=== PATIENT | male | born 1960 | race Caucasian/White ===

== ENCOUNTER → 2019-12-21 | Day surgery (SDC) | payer BC, OTHER ==
[~2019-12-21] MED LIST: COQ1050 MG PO; DICLOFENAC SOD100 G1 PO; DOXAZOSIN MESYLA2 MG PO; GLUCOSAMINE1000 MG PO; HYOSCYAMINE 0.125 MG TAB ONE; METOCLOPRAMIDE HCL 10 MG/2ML VIAL ONE; MULTI-VITAMIN1 EACH PO; PROPOFOL IV EMULSION 10 MG/ML 20 ML VIAL ONE
[2019-12-21 14:05] VITALS: BP 112/75
--- NOTE | 2019-12-21 15:09 | Operative Report ---
DATE OF PROCEDURE: 12/21/2019 SURGEON: George Drummond MD PROCEDURES: EGD with biopsies and esophageal dilatation, and a colonoscopy with polypectomy and biopsies. INDICATIONS FOR EGD: Dysphagia. INDICATIONS FOR COLONOSCOPY: Colorectal cancer screening. MEDICATIONS: The patient was done under MAC, please see anesthesiologist's note. PROCEDURE IN DETAIL: With the patient in left lateral decubitus position, a flexible fiberoptic Olympus gastroscope was introduced into the esophagus under direct visualization without any difficulty. There was some patchy erythema noted in distal esophagus. There were some velvety red tongues of mucosa extending proximally from the GE junction and biopsies were obtained to rule out sprue. There was also a mild stricture noted in the distal esophagus, that was dilated to size 52-[place]. The scope was then advanced with ease into the stomach, traversing a moderate-sized hiatal hernia. Mucosa overlying the antrum and the body revealed some patchy erythema and [id number] edema and biopsies were obtained, and sent to stain for H. pylori. The pylorus was of normal contour and shape, it was intubated with ease and the scope was advanced all the way to the second portion of the duodenum. Biopsies were obtained from the proximal second portion and duodenal bulb to rule out sprue. The scope was then withdrawn back into the stomach and retroflexed, mucosa overlying the fundus and cardia appeared to be within normal limits. The scope was then straightened out, it was subsequently withdrawn. The patient tolerated the procedure well. IMPRESSION: 1. Distal esophagitis. 2. Rule out Ford esophagus. 3. Esophageal stricture, distal esophagus, dilated to size 52-[place]. 4. Moderate size hiatal hernia. 5. Gastritis, biopsied, biopsies sent to stain for H. pylori. 6. Rule out sprue. PLAN: 1. Follow up histology. 2. Initiate Protonix 40 mg one p.o. q.a.m. a.c. DESCRIPTION OF PROCEDURE: The patient was then turned around and after adequate lubrication of the anal canal, a flexible fiberoptic Olympus colonoscope was inserted into the rectum with ease and advanced all the way to the cecum. It was then withdrawn slowly, mucosa overlying the cecum and ascending colon appeared to be within normal limits. A minute polyp was removed per the cold biopsy forceps from the distal transverse colon. The descending sigmoid appeared to be within normal limits. A minute submucosal nodule was noted in the distal rectum, that was biopsied. Moderate-sized internal hemorrhoids were noted on retroflexion. The scope was then straightened out, it was subsequently withdrawn. The patient tolerated the procedure well. IMPRESSION: 1. Transverse colon polyp, removed per cold biopsy forceps. 2. Submucosal nodule distal rectum, biopsied. 3. Internal hemorrhoids, none actively bleeding. PLAN: 1. Followup histology. 2. Initiate high-fiber, low-fat diet. 3. Initiate high-fiber supplement. 4. The patient might benefit from a followup colonoscopy in 3 years. George Drummond MD [facility] [place]/MOD[facility] /[id number] cc: Diego Chowdhury MD
== END | disposition home or self-care (01) ==
LOC: OR 10:22
PROVIDERS: ATTEND Internal Medicine Gastroenterology
DX: K22.2 Esophageal obstruction (principal); D12.3 Benign neoplasm of transverse colon; K29.70 Gastritis, unspecified, without bleeding; K21.0 Gastro-esophageal reflux disease with esophagitis; K44.9 Diaphragmatic hernia without obstruction or gangrene; K62.89 Other specified diseases of anus and rectum; K64.8 Other hemorrhoids; I10 Essential (primary) hypertension; Z01.810 Encounter for preprocedural cardiovascular examination; Z01.812 Encounter for preprocedural laboratory examination; Z11.59 Encounter for screening for other viral diseases
CPT/HCPCS: 43239; 43450; 45380; 93005; J2704; J2765; U0002

== ENCOUNTER 2020-02-08 09:01 | Inpatient (IN) | payer BC, OTHER ==
[~2020-02-08] VITALS: Ht 190.5 cm; Wt 129.3 kg
[~2020-02-08 09:01] MED LIST changes: -HYOSCYAMINE 0.125 MG TAB ONE; -METOCLOPRAMIDE HCL 10 MG/2ML VIAL ONE; -PROPOFOL IV EMULSION 10 MG/ML 20 ML VIAL ONE
[2020-02-08] MEDS ORDERED: AZITHROMYCIN 500MG/NS 250 ML 250 ML IV STA (09:04)
[2020-02-08] MEDS ORDERED: CEFTRIAXONE SOD 1 GM/NS 50 ML 50 ML IV ONE (09:15)
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
--- NOTE | 2020-02-08 09:58 | Emergency Department Note ---
History of Present Illnes History of Present Illness Chief Complaint: COVID PUI History of Present Illness This is a 59 year old mal arrives to the ED with complaints of cough fever shortness of breath. Pt covid + admits to worsening symptoms with ambulation. Chief Complaint Comment TESTED POSITIVE COVID 01/29 CAME INTO E.R. TODAY, WITH C/O OF SWEATING, COUGH, "FEEL LIKE I AM SUFFOCATING" SAT 97%. COMPLETING SENTENCES WITHOUT DIFFICULTY. Historian: Patient Arrival Mode: Car Additional Treatment RATE REVIEWER: NONE Radiation: Reports non-radiation Severity: mild Timing of current episode: constant Progression: worsening Relieving factors: none Exacerbating factors: none Past Medical/Family History Physician Review I have reviewed the patient's past medical and family history. Any updates have been documented here. Past Medical History Recent Fever: No Clinical Suspicion of Infectio: No New/Unexplained Change in Ment: No Past Medical History: None Past Surgical History: None Social History Smoking Cessation: Never Smoker Review of Systems Review of Systems Constitutional: Reports no symptoms, Reports chills, Reports fever EENTM: Reports no symptoms Cardiovascular: Reports no symptoms Respiratory: Reports as per HPI, Reports cough Gastrointestinal: Reports no symptoms Genitourinary: Reports no symptoms Musculoskeletal: Reports no symptoms Integumentary: Reports no symptoms Neurological: Reports no symptoms Psychological: Reports no symptoms Endocrine: Reports no symptoms Hematological/Lymphatic: Reports no symptoms Physical Exam Related Data Allergies: Coded Allergies: No Known Allergies (Unverified , 12/14/19) Triage Vital Signs Vital Signs Date Time Temp Pulse Resp B/P (MAP) Pulse Ox O2 Delivery O2 Flow Rate FiO2 02/08/20 09:21 98.8 98 18 175/104 97 Room Air Vital signs reviewed: Yes Physical Exam CONSTITUTIONAL Constitutional: Present well-developed, Present well-nourished HENT HENT: Present normocephalic, Present atraumatic, Present oropharynx clear/moist, Present nose normal HENT L/R: Present left ext ear normal, Present right ext ear normal EYES Eyes: Reports PERRL, Reports conjunctivae normal NECK Neck: Present ROM normal PULMONARY Pulmonary: Present effort normal, Present breath sounds normal CARDIOVASCULAR Cardiovascular: Present regular rhythm, Present heart sounds normal, Present capillary refill normal, Present normal rate GASTROINTESTINAL Abdominal: Present soft, Present nontender, Present bowel sounds normal GENITOURINARY Genitourinary: Present exam deferred SKIN Skin: Present warm, Present dry MUSCULOSKELETAL Musculoskeletal: Present ROM normal NEUROLOGICAL Neurological: Present alert, Present oriented x 3, Present no gross motor or sensory deficits PSYCHOLOGICAL Psychological: Present mood/affect normal, Present judgement normal Results Laboratory Lab results reviewed: Yes Laboratory comments Laboratory Tests Test 02/08/20 09:47 White Blood Count 5.80 x10e3/uL (4.8-10.8) Red Blood Count 5.23 x10e6/uL (4.3-5.7) Hemoglobin 14.6 g/dL (14.0-18.0) Hematocrit 44.1 % (38.2-49.6) Mean Corpuscular Volume 84.3 fL (81-99) Mean Corpuscular Hemoglobin 27.9 pg (28-32) Mean Corpuscular Hemoglobin Concent 33.1 g/dL (31-35) Red Cell Distribution Width 13.0 % (11.7-14.4) Platelet Count 291 x10e3/uL (140-360) Neutrophils (%) (Auto) 75.5 % (38.7-80.0) Lymphocytes (%) (Auto) 11.6 % (18.0-39.1) Monocytes (%) (Auto) 11.9 % (4.4-11.3) Eosinophils (%) (Auto) 0.5 % (0.0-6.0) Basophils (%) (Auto) 0.2 % (0.0-1.0) Neutrophils # (Auto) 4.4 (2.1-6.9) Lymphocytes # (Auto) 0.7 (1.0-3.2) Monocytes # (Auto) 0.7 (0.2-0.8) Eosinophils # (Auto) 0.0 (0.0-0.4) Basophils # (Auto) 0.0 (0.0-0.1) Absolute Immature Granulocyte (auto 0.02 x10e3/uL (0-0.1) Sodium Level 141 mmol/L (136-145) Potassium Level 4.0 mmol/L (3.5-5.1) Chloride Level 103 mmol/L (98-107) Carbon Dioxide Level 21 mmol/L (22-29) Anion Gap 21.0 mmol/L (8-16) Blood Urea Nitrogen 14 mg/dL (7-26) Creatinine 1.13 mg/dL (0.72-1.25) Estimat Glomerular Filtration Rate > 60 ML/MIN (60-) BUN/Creatinine Ratio 12 (6-25) Glucose Level 111 mg/dL (74-118) Calcium Level 8.4 mg/dL (8.4-10.2) Total Bilirubin 0.9 mg/dL (0.2-1.2) Aspartate Amino Transf (AST/SGOT) 88 IU/L (5-34) Alanine Aminotransferase (ALT/SGPT) 88 IU/L (0-55) Alkaline Phosphatase 60 IU/L (40-150) Creatine Kinase 337 IU/L (30-200) Creatine Kinase MB 5.70 ng/mL (0-5.0) Troponin I 0.021 ng/mL (0-0.300) Total Protein 7.0 g/dL (6.5-8.1) Albumin 3.8 g/dL (3.5-5.0) Globulin 3.2 g/dL (2.3-3.5) Albumin/Globulin Ratio 1.2 (0.8-2.0) Imaging Imaging results reviewed: Yes Impressions IMPRESSION: Bilateral multifocal hazy opacities can be seen in the setting of atypical pneumonia. Critical Care Time Total Critical Care Time (min): 35 Critical care time exclusive o: separately billable procedures Assessment & Plan Medical Decision Making MDM 59-year-old male arrives the ED with complaints of cough, no difficulty positive. Patient states his symptoms are worsening. Patient noted to have Coban pneumonia on chest x-ray. Patient required hospital admission for observation and further monitoring. Assessment & Plan Final Impression: (1) Pneumonia due to COVID-19 virus Depart Disposition: HOME, SELF-CARE Last Vital Signs Date Time Temp Pulse Resp B/P (MAP) Pulse Ox O2 Delivery O2 Flow Rate FiO2 02/08/20 09:21 98.8 98 18 175/104 97 Room Air Home Meds Reported Medications Diclofenac Sodium (Diclofenac Sodium) 100 Gm Gel..gram., 1 TAB PO DAILY 12/14/19 Doxazosin Mesylate (DOXAZOSIN MESYLATE) 2 Mg Tablet, 1 MG PO DAILY, #30 TAB 12/14/19 Multivitamin (MULTI-VITAMIN DAILY) 1 Each Tablet, 1 TAB PO DAILY 12/14/19 Ubidecarenone (Coq10) 50 Mg Tab.chew, 1 TAB PO DAILY 12/14/19 Glucosamine Sulfate 2KCL (GLUCOSAMINE) 1,000 Mg Tablet, 2 TAB PO DAILY 12/14/19 Medications in the ED Ceftriaxone Sodium 50 ml @ 100 mls/hr ONCE ONCE IV ; Start 02/08/20 at 09:15; Stop 02/08/20 at 09:44 Azithromycin 250 ml @ 250 mls/hr NOW STAT IV ; Start 02/08/20 at 09:04; Stop 02/08/20 at 10:03 CANDICE SCALES DO Feb 08, 2020 09:58
[2020-02-08 09:59] LABS: BASOPHILS % 0.2 % (0.0-1.0); EOSINOPHILS % 0.5 % (0.0-6.0); HEMATOCRIT 44.1 % (38.2-49.6); HEMOGLOBIN 14.6 g/dL (14.0-18.0); LYMPHOCYTES # (AUTO) 0.7 (1.0-3.2); LYMPHOCYTES % 11.6 % (18.0-39.1); MEAN CORPUSCULAR HEMOGLOBIN 27.9 pg (28-32); MEAN CORPUSCULAR HGB CONC 33.1 g/dL (31-35); MEAN CORPUSCULAR VOLUME 84.3 fL (81-99); MONOCYTES # (AUTO) 0.7 (0.2-0.8); MONOCYTES % 11.9 % (4.4-11.3); NEUTROPHILS # (AUTO) 4.4 (2.1-6.9); NEUTROPHILS % 75.5 % (38.7-80.0); PLATELET COUNT 291 x10e3/uL (140-360); RED BLOOD COUNT 5.23 x10e6/uL (4.3-5.7)
[2020-02-08 10:25] LABS: ALANINE AMINOTRANSFERASE 88 IU/L (0-55); ALBUMIN 3.8 g/dL (3.5-5.0); ALBUMIN/GLOBULIN RATIO 1.2 (0.8-2.0); ALKALINE PHOSPHATASE 60 IU/L (40-150); BLOOD UREA NITROGEN 14 mg/dL (7-26); BUN/CREATININE RATIO 12 (6-25); CALCIUM 8.4 mg/dL (8.4-10.2); CARBON DIOXIDE 21 mmol/L (22-29); CHLORIDE 103 mmol/L (98-107); CREATINE KINASE 337 IU/L (30-200); CREATININE, SERUM 1.13 mg/dL (0.72-1.25); EST GLOMERULAR FILTRATION RATE > 60 ML/MIN (60-); GLUCOSE 111 mg/dL (74-118); SODIUM 141 mmol/L (136-145)
--- NOTE | 2020-02-08 10:31 | Diagnostic Imaging Report ---
EXAMINATION: CHEST SINGLE (PORTABLE) INDICATION: Shortness of breath COMPARISON: None FINDINGS: LINES/TUBES:None LUNGS:The lungs are well-inflated. Bilateral multifocal hazy opacities. PLEURA:No pleural effusion or pneumothorax. MEDIASTINUM:The cardiomediastinal silhouette appears normal in size and shape. BONES/SOFT TISSUES:No acute osseous injury. ABDOMEN:No free air under the diaphragm. IMPRESSION: Bilateral multifocal hazy opacities can be seen in the setting of atypical pneumonia. Signed by: Red Molina MD on 02/08/2020 10:27 AM
[2020-02-08] MEDS: DEXAMETHASONE SOD PHOS INJ 4 MG/ML VIAL IV SCH (14:43)
[2020-02-08] MEDS: SODIUM CHLORIDE 0.9% 1000ML 1,000 ML IV SCH (14:43)
--- NOTE | 2020-02-08 18:12 | History and Physical ---
CHIEF COMPLAINT: The patient is a 59-year-old gentleman, who came in with shortness of breath and cough and congestion. HISTORY OF PRESENTING ILLNESS: Mr. Ben Harper, who was tested about a week ago by me in the clinic and was positive for COVID-19, was sent home with symptomatic treatment. The patient did not have any symptoms of cough and congestion, was given some antibiotics and over the weekend and towards the beginning of the week, the patient woke up with congestion and a lot of fever and myalgia, and the patient was calling the office and was asked to come on to the hospital for possible admission secondary to COVID pneumonia. PAST MEDICAL HISTORY: History of hypertension, history of hyperlipidemia, and history of prediabetes. PAST SURGICAL HISTORY: Noncontributory. SOCIAL HISTORY: No EtOH. No IV drug abuse. No history of smoking. FAMILY HISTORY: Noncontributory. ALLERGIES: THE PATIENT NO KNOWN DRUG ALLERGIES. MEDICATIONS: He takes at home are diclofenac 100 mg, doxazosin 2 mg, glucosamine chondroitin, multivitamin, and CoQ10. REVIEW OF SYSTEMS: Negative for chest pain. Positive for some shortness of breath. No nausea, vomiting, or diarrhea. Positive for myalgia. Positive for fever, positive for congestion, and positive for cough. No diplopia. No blurry vision. PHYSICAL EXAMINATION: VITAL SIGNS: Temperature is 98.4, pulse of 89, respirations of 22, blood pressure is 155/96, on room air. HEENT: Normocephalic, atraumatic. Pupils are reactive to light and accommodation. CVS: S1 and S2 are normal. Regular rate and rhythm. LUNGS: Decreased air entry. Positive rhonchi bilaterally. EXTREMITIES: No clubbing. No cyanosis. Positive for 1+ edema. LABORATORY VALUES: White count is 5.80, hemoglobin 14.6, hematocrit 44.1. Chemistry shows sodium 141, potassium 4.0, BUN of 14, creatinine of 1.13, ALT and AST of 88 and 88. Creatine kinase was 337 and troponin 0.021. Serology; coronavirus is pending, but has been positive in the past. Chest x-ray shows bilateral multifocal hazy opacities, can be seen in the setting of atypical pneumonia. ASSESSMENT: Mr. Ben Harper with coronavirus disease 2019 pneumonia. PLAN: Is to start the patient on azithromycin, Rocephin, and albuterol treatments will be given. The patient also needs to be in isolation. Lovenox 40 mg twice a day for DVT prophylaxis and also start the patient on dexamethasone 6 mg once a day per COVID protocol. Continue to monitor the patient. IV fluids and hydration. Further recommendation per clinical course. A consult with Dr. Milton and Dr. Raines has been done. MD FRANK Hodge/KATELYNL /[id number]
--- NOTE | 2020-02-08 18:57 | Consultation ---
DATE OF CONSULTATION: Pulmonary Consultation The patient of Dr. Diego Chowdhury. HISTORY OF PRESENT ILLNESS: Melissaming 59-year-old gentleman admitted with sweats, nonproductive cough, sore throat, ill for approximately three weeks. History of BPH, episode of diarrhea, noted swelling of the legs. History of BPH, on doxazosin. Also takes diclofenac. ALLERGIES: NO KNOWN ALLERGIES. SURGICAL HISTORY: He has had neck surgery, TNA. SOCIAL HISTORY: Rarely drinks. Does not smoke. Works for a [employer]. Son and his family also affects with COVID-19. PHYSICAL EXAMINATION: VITAL SIGNS: Temperature 98.8, pulse 98, blood pressure 175/104, O2 saturation 97% on room air. HEAD: Normocephalic, atraumatic. EYES: Extraocular movements are intact. LUNGS: Few rales at the bases. HEART: Regular rhythm. ABDOMEN: Nontender. EXTREMITIES: Edematous. IMPRESSION: COVID-19 pneumonia. PLAN: Support, moderate dose of Decadron. Prophylactic anticoagulation. Consider venous Doppler of the lower extremities. Continue doxazosin. Careful observation. Empiric antibiotic therapy with azithromycin and Rocephin. Thank you for this kind referral. MD JUAN Peace/ADRIENNE /[id number]
[2020-02-08] MEDS ORDERED: ASPIRIN 325 MG TAB PO ONE (20:30)
[2020-02-08] MEDS ORDERED: ASPIRIN 325 MG TAB EC PO ONE (20:31)
--- NOTE | 2020-02-08 20:44 | NUR ---
EKG PERFORMED: SHOWN TO DR JOHNSON FOR REVIEW, CARDIOLOGY TEAM PAGED AND RULED OUT NON-EMERGENT EKG BY -CARDIOLOGY.
--- NOTE | 2020-02-08 20:46 | NUR ---
EXTENSIVE CONVERSATION BETWEEN DR RIZVI AND DR PERDUE
[2020-02-08] MEDS: ENOXAPARIN SOD INJ 40 MG/0.4 ML SYR SC SCH (21:04)
[2020-02-08] MEDS: CEFTRIAXONE SOD 1 GM/NS 50 ML 50 ML IV SCH (21:04)
--- NOTE | 2020-02-08 22:15 | NUR ---
ADMISSION STATUS CHANGED TO IMCU PER DR. Joe YANES; HS NOTIFIED
[2020-02-09] VITALS (7 sets, daily range): BP systolic 138–173; BP diastolic 88–119
--- NOTE | 2020-02-09 00:10 | NUR ---
CALLED DR PERDUE FOR PRN MED FOR PT BP CURRENTLY AT 173/119. LEFT MESSAGE AWAITING CALL BACK.
[2020-02-09] MEDS: SODIUM CHLORIDE 0.9% 1000ML 1,000 ML IV SCH ×3 (00:29→13:53)
[2020-02-09] MEDS: HYDRALAZINE HCL 20 MG/ML VIAL IV STA ×2 (00:29→01:02)
--- NOTE | 2020-02-09 01:02 | NUR ---
PATIENT REFUSED PRN HYDRALAZINE FOR HIGH BP STATING THAT IT WILL GO DOWN AND HE DOESN'T LIKE MEDS. ED PT THAT IF IT GOES UP AND STAYS UP THAT IS WHEN WE NEED TO ADMINISTER TO AVOID PROBLEMS. WILL CONT TO MONITOR.
[2020-02-09] MEDS ORDERED: HYDRALAZINE HCL 20 MG/ML VIAL IV PRN (04:00)
[2020-02-09 04:43] LABS: HEMATOCRIT 43.9 % (38.2-49.6); HEMOGLOBIN 14.3 g/dL (14.0-18.0); LYMPHOCYTES # (AUTO) 0.3 (1.0-3.2); MEAN CORPUSCULAR HEMOGLOBIN 28.3 pg (28-32); MEAN CORPUSCULAR HGB CONC 32.6 g/dL (31-35); MEAN CORPUSCULAR VOLUME 86.9 fL (81-99); MONOCYTES # (AUTO) 0.3 (0.2-0.8); MONOCYTES % 7.4 % (4.4-11.3); NEUTROPHILS # (AUTO) 3.9 (2.1-6.9); NEUTROPHILS % 84.9 % (38.7-80.0); PLATELET COUNT 319 x10e3/uL (140-360); RED BLOOD COUNT 5.05 x10e6/uL (4.3-5.7)
[2020-02-09 05:02] LABS: ALANINE AMINOTRANSFERASE 77 IU/L (0-55); ALBUMIN 3.5 g/dL (3.5-5.0); ALBUMIN/GLOBULIN RATIO 1.1 (0.8-2.0); ALKALINE PHOSPHATASE 59 IU/L (40-150); ANION GAP 17.9 mmol/L (8-16); BLOOD UREA NITROGEN 13 mg/dL (7-26); BUN/CREATININE RATIO 12 (6-25); CALCIUM 8.2 mg/dL (8.4-10.2); CARBON DIOXIDE 22 mmol/L (22-29); CHLORIDE 106 mmol/L (98-107); CREATININE, SERUM 1.05 mg/dL (0.72-1.25); EST GLOMERULAR FILTRATION RATE > 60 ML/MIN (60-); GLUCOSE 150 mg/dL (74-118); POTASSIUM 4.9 mmol/L (3.5-5.1); SODIUM 141 mmol/L (136-145)
[2020-02-09 05:25] LABS: CREATINE KINASE MB 7.3 ng/mL (0-5.0)
[2020-02-09] MEDS: CEFTRIAXONE SOD 1 GM/NS 50 ML 50 ML IV SCH ×2 (09:33→21:04)
[2020-02-09] MEDS: DEXAMETHASONE SOD PHOS INJ 4 MG/ML VIAL IV SCH (09:35)
[2020-02-09] MEDS: MULTIVITAMINS/MINERALS TAB PO SCH (09:35)
[2020-02-09] MEDS: ENOXAPARIN SOD INJ 40 MG/0.4 ML SYR SC SCH ×2 (09:36→21:04)
[2020-02-09] MEDS: DOXAZOSIN MESYLATE 2 MG TAB PO SCH (09:36)
[2020-02-09] MEDS: AZITHROMYCIN 500MG/NS 250 ML 250 ML IV SCH (10:18)
[2020-02-09] MEDS ORDERED: ALBUTEROL SULFATE HFA 8GM INHALATION AEROSOL INH PRN (11:00)
[2020-02-09] MEDS: CHLORTHALIDONE 25 MG TAB PO SCH (11:49)
--- NOTE | 2020-02-09 13:31 | Consultation ---
DATE OF CONSULTATION: Cardiology Consult HISTORY OF PRESENT ILLNESS: Ben Harper is a 59-year-old male with primary history of hypertension, hyperlipidemia, prediabetes, and gastritis, who came admitted complaining of (hacking cough), worsening shortness of breath that started for about a week now. He was tested positive for COVID-19 infection about a week ago from his primary doctor's office and was sent home with symptomatic treatment. However, about 2 days ago, the patient is complaining that his cough is unstoppable accompanying fever and myalgia. The patient denies any chest pain, dizziness, or palpitations. The patient also denies any cardiac disease/history. PAST MEDICAL HISTORY: Hypertension, hyperlipidemia, prediabetes, and gastritis. PAST SURGICAL HISTORY: None. SOCIAL HISTORY: No ETOH. No IV drug abuse. Nonsmoker. FAMILY HISTORY: Mother, diabetes and hypertension. Father, hyperlipidemia. ALLERGIES: NO KNOWN DRUG ALLERGIES. HOME MEDICATIONS: Includes doxazosin 1 mg daily, diclofenac 100 mg p.o. daily, glucosamine chondroitin, multivitamin, and CoQ10. REVIEW OF SYSTEMS: A detailed 12-point review of system was performed and was negative except as noted in HPI above. PHYSICAL EXAMINATION: VITAL SIGNS: 97.8 temperature, heart rate of 73, respiratory rate of 15, blood pressure is 138/88, and pulse oximetry 96% on 3 L nasal cannula. GENERAL: The patient is well developed and well nourished, in no acute respiratory distress. SKIN: Normal in appearance and texture. Cool and clammy. No bruising. HEENT: The patient's cranium is normocephalic and atraumatic. Pupils are equally round and reactive to light and accommodation. Sclerae nonicteric. NECK: Supple. Full range of motion. No cervical lymphadenopathy. No thyromegaly. Carotid upstroke is normal bilaterally without bruits. No JVD or hepatojugular reflux. RESPIRATORY: Short of breath on exertion. Diminished breath sounds also of lung chairez. Decreased air entry at the bases. CARDIOVASCULAR: S1 and S2 is audible. Regular rate and rhythm. No significant murmurs heard. GI: Soft, nontender, and nondistended. Bowel sounds are present. EXTREMITIES: No cyanosis. No clubbing. There is trace edema, more on the left than the right. NEUROVASCULAR: Motor is intact. Pulses are palpable, 1+ throughout. NEUROLOGIC: Motor and sensory examination of the upper and lower extremities is normal. Reflexes are normal and symmetric. LABORATORY VALUES: Includes WBC of 4.60, hemoglobin 14.3, hematocrit is 43.9, and platelets 319. Sodium 141, potassium 4.0, BUN of 14, and creatinine 1.13. ALT and AST of 88 and 88. CK 337 and troponin 0.021, 0.018, 0.017 respectively. CK-MB is elevated at 5.70, 7.30 respectively. Chest x-ray/imaging shows bilateral multifocal hazy opacities. ASSESSMENT AND PLAN: 1. The patient is a 59-year-old male with COVID-19 infection pneumonia, admitted with atypical presentation for atypical chest pain, seen and examined by Dr. Larkin. No acute cardiac intervention indicated at this moment except to continue telemetry monitoring, trend cardiac enzymes and we will recheck EKG and obtain echocardiogram to evaluate valves and LV function. 2. Continue supportive measures for COVID-19 infection. Thank you for this consultation. We will continue to follow. Dictated by Deanne Herrera NP MD CESAR Nam/ADRIENNE /[id number]
[2020-02-09] MEDS: BUDESONIDE 90 MCG FLEXHALER IH SCH (19:00)
--- NOTE | 2020-02-09 20:03 | Progress Note ---
DATE: SUBJECTIVE: The patient is a 59-year-old gentleman, who came in with COVID pneumonia. The patient is currently on budesonide, Rocephin, and azithromycin. No complaints. He is on 3 to 4 L of oxygen at this time. OBJECTIVE: HEENT: Normocephalic and atraumatic. Pupils are reactive to light and accommodation. CVS: S1 and S2 normal. LUNGS: Decreased air entry. Positive for some rhonchi. ABDOMEN: Nontender. EXTREMITIES: No clubbing. No cyanosis. No edema. VITAL SIGNS: Stable. Temperature is 98.0, pulse is 78, respirations of 20, and blood pressure is 132/95. LABORATORY VALUES: White count today is 4.60, hemoglobin of 14.3, and hematocrit of 43.9. Chemistries show sodium of 141, potassium of 4.9, BUN of 13, and creatinine 1.05. Creatine kinase was 177. Troponin slight elevation from 0.021 to 0.018 to 0.017. IMAGING STUDIES: None done today. ASSESSMENT: This is Mr. Harper with: 1. COVID-19 pneumonia. 2. History of hypertension. 3. History of osteoarthritis. PLAN: Continue azithromycin, Rocephin, and albuterol. Lovenox 40 for DVT prophylaxis has been given. Dexamethasone once a day and the patient is on IV fluids. We will cut down IV fluids to [address] Abdifatah Larkin has seen the patient and troponin leak has been secondary to pneumonia. Recheck EKG and obtain echocardiogram to evaluate his LV function. Right now, continue with current management. Further recommendation per clinical course. MD FRANK Hodge/MODL /[id number]
[2020-02-10] VITALS (8 sets, daily range): BP systolic 134–154; BP diastolic 81–103
[2020-02-10] MEDS: SODIUM CHLORIDE 0.9% 1000ML 1,000 ML IV SCH ×2 (08:34→13:22)
[2020-02-10] MEDS: DEXAMETHASONE SOD PHOS INJ 4 MG/ML VIAL IV SCH (08:35)
[2020-02-10] MEDS: DOXAZOSIN MESYLATE 2 MG TAB PO SCH (08:37)
[2020-02-10] MEDS: MULTIVITAMINS/MINERALS TAB PO SCH (08:37)
[2020-02-10] MEDS: CHLORTHALIDONE 25 MG TAB PO SCH (08:37)
[2020-02-10] MEDS: MELOXICAM 7.5 MG TAB PO SCH (08:37)
[2020-02-10] MEDS: ENOXAPARIN SOD INJ 40 MG/0.4 ML SYR SC SCH ×2 (08:37→21:41)
[2020-02-10] MEDS: CEFTRIAXONE SOD 1 GM/NS 50 ML 50 ML IV SCH ×2 (08:40→21:41)
[2020-02-10] MEDS: BUDESONIDE 90 MCG FLEXHALER IH SCH ×2 (09:00→20:50)
[2020-02-10] MEDS: AZITHROMYCIN 500MG/NS 250 ML 250 ML IV SCH (09:35)
[2020-02-10] MEDS ORDERED: BENZONATATE 100 MG CAP PO PRN (14:15)
--- NOTE | 2020-02-10 19:00 | NUR ---
Report received. Assumed care. Assessment done. See interventions. O2 per NC @ 2L. IV NS @ 70ml/hr.
--- NOTE | 2020-02-10 22:00 | NUR ---
IV pulled out accidentally by patient. Restarted after attempts by 3 nurses to left hand.
[2020-02-11] VITALS (7 sets, daily range): BP systolic 108–158; BP diastolic 65–99
[2020-02-11] MEDS: SODIUM CHLORIDE 0.9% 1000ML 1,000 ML IV SCH (01:45)
--- NOTE | 2020-02-11 06:30 | NUR ---
Dr. Carmona here. Orders given. IVF stopped.
[2020-02-11 07:05] LABS: BASOPHILS % 0.1 % (0.0-1.0); HEMATOCRIT 43.5 % (38.2-49.6); HEMOGLOBIN 14.1 g/dL (14.0-18.0); LYMPHOCYTES # (AUTO) 0.7 (1.0-3.2); LYMPHOCYTES % 8.6 % (18.0-39.1); MEAN CORPUSCULAR HEMOGLOBIN 27.5 pg (28-32); MEAN CORPUSCULAR HGB CONC 32.4 g/dL (31-35); MEAN CORPUSCULAR VOLUME 84.8 fL (81-99); MONOCYTES # (AUTO) 0.7 (0.2-0.8); MONOCYTES % 8.1 % (4.4-11.3); NEUTROPHILS # (AUTO) 6.8 (2.1-6.9); NEUTROPHILS % 82.1 % (38.7-80.0); PLATELET COUNT 446 x10e3/uL (140-360); RED BLOOD COUNT 5.13 x10e6/uL (4.3-5.7); RED CELL DISTRIBUTION WIDTH 13.1 % (11.7-14.4)
[2020-02-11 07:33] LABS: ALANINE AMINOTRANSFERASE 86 IU/L (0-55); ALBUMIN 3.4 g/dL (3.5-5.0); ALBUMIN/GLOBULIN RATIO 1.3 (0.8-2.0); ALKALINE PHOSPHATASE 53 IU/L (40-150); ANION GAP 15.1 mmol/L (8-16); BLOOD UREA NITROGEN 19 mg/dL (7-26); BUN/CREATININE RATIO 20 (6-25); CALCIUM 8.2 mg/dL (8.4-10.2); CARBON DIOXIDE 21 mmol/L (22-29); CHLORIDE 106 mmol/L (98-107); CREATININE, SERUM 0.95 mg/dL (0.72-1.25); EST GLOMERULAR FILTRATION RATE > 60 ML/MIN (60-); GLUCOSE 101 mg/dL (74-118); MAGNESIUM 2.1 MG/DL (1.3-2.1); POTASSIUM 4.1 mmol/L (3.5-5.1); SODIUM 138 mmol/L (136-145)
[2020-02-11] MEDS: DEXAMETHASONE SOD PHOS INJ 4 MG/ML VIAL IV SCH (08:30)
[2020-02-11] MEDS: BUDESONIDE 90 MCG FLEXHALER IH SCH ×2 (08:30→18:40)
[2020-02-11] MEDS: CEFTRIAXONE SOD 1 GM/NS 50 ML 50 ML IV SCH ×2 (08:33→20:25)
[2020-02-11] MEDS: ENOXAPARIN SOD INJ 40 MG/0.4 ML SYR SC SCH ×2 (08:33→20:25)
[2020-02-11] MEDS: MULTIVITAMINS/MINERALS TAB PO SCH (08:33)
[2020-02-11] MEDS: MELOXICAM 7.5 MG TAB PO SCH (08:33)
[2020-02-11] MEDS: CHLORTHALIDONE 25 MG TAB PO SCH (08:33)
[2020-02-11] MEDS: DOXAZOSIN MESYLATE 2 MG TAB PO SCH (09:00)
[2020-02-11] MEDS: AZITHROMYCIN 500MG/NS 250 ML 250 ML IV SCH (10:06)
[2020-02-12] VITALS (8 sets, daily range): BP systolic 107–152; BP diastolic 72–100
--- NOTE | 2020-02-12 07:14 | NUR ---
Report completed with oncoming nurse. Patient in bed with call light within reach. No issues or concerns noted.
--- NOTE | 2020-02-12 07:53 | Diagnostic Imaging Report ---
EXAMINATION: CHEST SINGLE (PORTABLE) INDICATION: Covid short of breath COMPARISON: Chest x-ray 02/08/2020. FINDINGS: TUBES and LINES: None. LUNGS: Normal lung volumes. Persistent bilateral patchy airspace haziness. No consolidations. PLEURA: No pleural effusion or pneumothorax. HEART AND MEDIASTINUM: The cardiomediastinal silhouette is unremarkable. BONES AND SOFT TISSUES: No acute osseous lesion. Soft tissues are unremarkable. UPPER ABDOMEN: No free air under the diaphragm. IMPRESSION: Multifocal pneumonia. Signed by: Cabrera Lopez DO on 02/12/2020 7:49 AM
[2020-02-12] MEDS: CEFTRIAXONE SOD 1 GM/NS 50 ML 50 ML IV SCH ×2 (08:07→21:28)
[2020-02-12] MEDS: ENOXAPARIN SOD INJ 40 MG/0.4 ML SYR SC SCH ×2 (08:07→21:28)
[2020-02-12] MEDS: CHLORTHALIDONE 25 MG TAB PO SCH (08:07)
[2020-02-12] MEDS: MULTIVITAMINS/MINERALS TAB PO SCH (08:07)
[2020-02-12] MEDS: DOXAZOSIN MESYLATE 2 MG TAB PO SCH (08:07)
[2020-02-12] MEDS: DEXAMETHASONE SOD PHOS INJ 4 MG/ML VIAL IV SCH (08:07)
[2020-02-12] MEDS: BUDESONIDE 90 MCG FLEXHALER IH SCH ×3 (08:07→19:05)
[2020-02-12] MEDS: MELOXICAM 7.5 MG TAB PO SCH (08:07)
--- NOTE | 2020-02-12 10:25 | NUR ---
HOME 02 EVAL DONE PT DOES NOT QUALIFY FOR HOME 02 SATS ON ROOM AIR WITH EXERTIOIN 95%
[2020-02-12] MEDS: AZITHROMYCIN 500MG/NS 250 ML 250 ML IV SCH (10:53)
[2020-02-12] MEDS ORDERED: METOPROLOL TARTRATE INJ 1 MG/ML VIAL IV PRN (12:00)
[2020-02-12 14:26] LABS: CHOL/HDL RATIO 5.3 (3.9-4.7)
--- NOTE | 2020-02-12 18:31 | Progress Note ---
DATE: SUBJECTIVE: The patient has improved remarkably. Denies any complaints. Cough is much better. Pulmicort was started yesterday and the patient was already on Tessalon Perles. Denies any complaints of chest pain, shortness of breath improved. PHYSICAL EXAMINATION: VITAL SIGNS: Temperature 98.3, pulse of 75, blood pressure 152/81. CHEST: Clear to auscultation bilaterally. HEART: S1, S2 audible. ABDOMEN: Soft. EXTREMITIES: No pedal edema. NEUROLOGIC: Awake and alert. LABORATORY DATA: Reviewed. ASSESSMENT/PLAN: Mr. Harper is a 59-year-old male with COVID-19 pneumonia. The patient has improved remarkably. Continue the patient on antibiotics, Decadron, which can be changed to p.o. prednisone for one week on discharge. Continue the patient on Pulmicort inhaler. The patient's cough has improved, Lovenox 40 mg subcu daily. MD GIL Tian/ADRIENNE /[id number]
--- NOTE | 2020-02-12 20:17 | Progress Note ---
DATE: SUBJECTIVE: The patient came in with COVID-19 pneumonia. The patient is feeling better. Shortness of breath on exertion, off oxygen at this time. Does complain of some left lower extremity swelling. OBJECTIVE: VITAL SIGNS: Temperature 97.1, pulse of 70, respirations of 18, blood pressure is 147/73, 98% on room air. HEENT: Normocephalic and atraumatic. Pupils reactive. CVS: S1 and S2 normal, regular rate and rhythm. ABDOMEN: Soft and nontender, nondistended. EXTREMITIES: No clubbing, no cyanosis, no edema. LUNGS: Multifocal pneumonia still. LABORATORY VALUES: White count is 8.24 on February 10. Chemistries are all within normal limits. ASSESSMENT: Mr. Ben Harper with COVID-19 pneumonia. PLAN: Continue current management. The patient is on azithromycin, budesonide, dexamethasone, and Rocephin. The patient has no O2 demands at this time. Plan is to discharge tomorrow. However, with the left lower extremity swelling, we will do a venous Doppler, possible discharge morning tomorrow. Further recommendation per clinical course. MD FRANK Hodge/MODL /[id number]
[2020-02-13] VITALS (8 sets, daily range): BP systolic 102–143; BP diastolic 78–106
[2020-02-13 07:21] LABS: BASOPHILS % 0.1 % (0.0-1.0); EOSINOPHILS % 0.1 % (0.0-6.0); HEMATOCRIT 47.7 % (38.2-49.6); HEMOGLOBIN 15.6 g/dL (14.0-18.0); LYMPHOCYTES # (AUTO) 0.9 (1.0-3.2); LYMPHOCYTES % 10.2 % (18.0-39.1); MEAN CORPUSCULAR HEMOGLOBIN 27.8 pg (28-32); MEAN CORPUSCULAR HGB CONC 32.7 g/dL (31-35); MEAN CORPUSCULAR VOLUME 84.9 fL (81-99); MONOCYTES # (AUTO) 0.6 (0.2-0.8); MONOCYTES % 6.5 % (4.4-11.3); NEUTROPHILS # (AUTO) 6.8 (2.1-6.9); PLATELET COUNT 502 x10e3/uL (140-360); RED BLOOD COUNT 5.62 x10e6/uL (4.3-5.7); RED CELL DISTRIBUTION WIDTH 12.9 % (11.7-14.4)
[2020-02-13 07:41] LABS: ANION GAP 14.1 mmol/L (8-16); BLOOD UREA NITROGEN 17 mg/dL (7-26); BUN/CREATININE RATIO 15 (6-25); CARBON DIOXIDE 30 mmol/L (22-29); CHLORIDE 101 mmol/L (98-107); EST GLOMERULAR FILTRATION RATE > 60 ML/MIN (60-); GLUCOSE 102 mg/dL (74-118); POTASSIUM 4.1 mmol/L (3.5-5.1); SODIUM 141 mmol/L (136-145)
[2020-02-13] MEDS: BUDESONIDE 90 MCG FLEXHALER IH SCH ×2 (07:50→18:20)
[2020-02-13] MEDS: DEXAMETHASONE SOD PHOS INJ 4 MG/ML VIAL IV SCH (08:22)
[2020-02-13] MEDS: DOXAZOSIN MESYLATE 2 MG TAB PO SCH (08:23)
[2020-02-13] MEDS: MELOXICAM 7.5 MG TAB PO SCH (08:23)
[2020-02-13] MEDS: ENOXAPARIN SOD INJ 40 MG/0.4 ML SYR SC SCH ×2 (08:23→21:32)
[2020-02-13] MEDS: MULTIVITAMINS/MINERALS TAB PO SCH (08:23)
[2020-02-13] MEDS: CHLORTHALIDONE 25 MG TAB PO SCH (08:23)
[2020-02-13] MEDS: CEFTRIAXONE SOD 1 GM/NS 50 ML 50 ML IV SCH ×2 (08:23→21:32)
--- NOTE | 2020-02-13 08:50 | Progress Note ---
DATE: SUBJECTIVE: 59-year-old male who came in with COVID pneumonia, still complains of cough and congestion. Complains to have some chills. No shortness of breath, however, the patient was having chills and when I walked. OBJECTIVE: VITAL SIGNS: Temperature is 97.8, pulse 74, respirations of 19, blood pressure is 102/78, and pulse oximetry of 94% on room air. HEENT: Normocephalic and atraumatic. LUNGS: Decreased air entry. Positive for rhonchi bilaterally. ABDOMEN: Soft, nontender, and nondistended. EXTREMITIES: Positive for left lower extremity with edema. Ultrasound is pending. LABORATORY VALUES: None done from the , we will repeat it today. ASSESSMENT AND PLAN: Mr. Ben Harper with COVID pneumonia. The patient will be continue to monitor. We will do a CBC today. Plan would be to discharge if okay with Pulmonary and Infectious Disease. The patient has chills. We will keep an eye on it and also check his ultrasound to rule out deep vein thrombosis. MD FRANK Hodge/MODL /[id number]
[2020-02-13] MEDS ORDERED: METOPROLOL TARTRATE 25 MG TAB PO SCH (09:00)
[2020-02-13] MEDS: AZITHROMYCIN 500MG/NS 250 ML 250 ML IV SCH (09:56)
--- NOTE | 2020-02-13 10:36 | Progress Note ---
DATE: SUBJECTIVE: The patient has clinically improved, off oxygen, breathing much better. Denying any complaints. PHYSICAL EXAMINATION: VITAL SIGNS: Temperature 97.6, pulse of 82, blood pressure 126/67, and afebrile. CHEST: Clear to auscultation bilaterally. NEUROLOGIC: Awake and alert. LABORATORY DATA: White count of 8000 and hemoglobin 15.6. Chemistry reviewed. ASSESSMENT/PLAN: Mr. Harper is a 59-year-old male with COVID-19 pneumonia. The patient has improved chest x-ray. Chest x-ray will possibly take another 2 weeks to get better. Overall, the patient has improved. Cleared from Pulmonary standpoint to be discharged. Venous Doppler has been ordered for ruling out deep venous thrombosis. The patient is on 40 mg of Lovenox b.i.d. MD GIL Tian/ADRIENNE /[id number]
[2020-02-14] VITALS: BP 131/89
[2020-02-14 04:00] VITALS: BP 131/100
[2020-02-14] MEDS: BUDESONIDE 90 MCG FLEXHALER IH SCH (07:00)
--- NOTE | 2020-02-14 07:15 | NUR ---
Patient removed his ekg monitor tech stating " I have been discharged and I will be going home later, I do not want to wear the wires".
[2020-02-14 07:51] VITALS: BP 108/84
--- NOTE | 2020-02-14 08:01 | Progress Note ---
DATE: SUBJECTIVE: The patient is a 59-year-old male, who came in with COVID-19 pneumonia. The patient is doing much better. No oxygen at this time, on antibiotics. DVT test, Dopplers are negative. The patient is eager to go home. OBJECTIVE: VITAL SIGNS: Temperature is 97.9, pulse of 67, respirations of 22, blood pressure is 131/89, and pulse oximetry 94% on room air. HEENT: Normocephalic and atraumatic. Pupils are reactive. CVS: S1 and S2 normal. Regular rate and rhythm. ABDOMEN: Soft, nontender, and nondistended. LUNGS: Decreased air entry. EXTREMITIES: No clubbing. No cyanosis. Trace amount of edema. LABORATORY DATA: Laboratory tests all within normal limits. Chemistries all within normal limits. Imaging studies about the same. ASSESSMENT AND PLAN: This is Mr. Ben Harper with; COVID-19 pneumonia. Chest x-ray shows improvement. We will see the patient back in about 10 days in the clinic, okay to discharge. The patient will be on aspirin 325 mg once a day and the patient is asked to follow up with me in about 10 days strict ER warnings given to the patient. MD FRANK Hodge/ADRIENNE /[id number]
[2020-02-14] MEDS: ENOXAPARIN SOD INJ 40 MG/0.4 ML SYR SC SCH (08:02)
[2020-02-14] MEDS: CEFTRIAXONE SOD 1 GM/NS 50 ML 50 ML IV SCH (08:10)
[2020-02-14] MEDS: MULTIVITAMINS/MINERALS TAB PO SCH (08:10)
[2020-02-14] MEDS: MELOXICAM 7.5 MG TAB PO SCH (08:10)
[2020-02-14] MEDS: CHLORTHALIDONE 25 MG TAB PO SCH (08:10)
[2020-02-14] MEDS: DEXAMETHASONE SOD PHOS INJ 4 MG/ML VIAL IV SCH (08:10)
[2020-02-14] MEDS: DOXAZOSIN MESYLATE 2 MG TAB PO SCH (08:10)
[2020-02-14] MEDS: AZITHROMYCIN 500MG/NS 250 ML 250 ML IV SCH (09:25)
[2020-02-14 10:16] VITALS: BP 108/84
--- NOTE | 2020-02-14 10:20 | NUR ---
Patient stating, he will drive himself home after being discharged, notified Dr. Chowdhury of patient's wishes, per Dr. Chowdhury offer him a voucher for taxicab, to ensure safe discharge, if patient declines let him go in his own vehicle.
[2020-02-14 11:41] VITALS: BP 108/94
--- NOTE | 2020-02-14 11:45 | NUR ---
Patient discharged home, verbalized understanding of d/c instructions.
== END 2020-02-14 11:53 | disposition home or self-care (01) | DRG 177 ==
LOC: ER 09:20 → ERHOLD 11:22 → OBSVTOIN 11:22 → IMCU 23:40
PROVIDERS: ADMIT Family Medicine; ATTEND Family Medicine
DX: U07.1 COVID-19 (principal); J12.89 Other viral pneumonia; J96.01 Acute respiratory failure with hypoxia; I47.1 Supraventricular tachycardia; I10 Essential (primary) hypertension; E78.5 Hyperlipidemia, unspecified; R73.03 Prediabetes; Z83.3 Family history of diabetes mellitus; Z82.49 Family history of ischemic heart disease and other diseases of the circulatory system; M19.90 Unspecified osteoarthritis, unspecified site; N40.0 Benign prostatic hyperplasia without lower urinary tract symptoms; G47.33 Obstructive sleep apnea (adult) (pediatric)
CPT/HCPCS: 36415; 71045; 80048; 80053; 80061; 82550; 82553; 83036; 83735; 84484; 85025; 93005; 93306; 93970; 94664; 99284; J0360; J0456; J0696; J1100; J1650; J7030; J7633; U0002